=== PATIENT | male | born 1975 | race Two or more races ===

== ENCOUNTER 2024-08-25 05:30 | Inpatient (IN) | payer OTHER ==
[2024-08-19 08:48] VITALS: BP 132/89
[~2024-08-25] VITALS: Ht 165.1 cm; Wt 93.9 kg
[~2024-08-25 05:30] MED LIST: LEVOTHYROXINE25 MC2 PO; LEVOTHYROXINE25 MCG PO; TOPROL XL50 M1; ZESTRIL20 MG PO
[2024-08-25] MEDS ORDERED: CEFAZOLIN SODIUM 1,000 MG VIAL ONE ×2 (12:02→16:09)
[2024-08-25] MEDS ORDERED: BUPIVACAINE HCL/MPF 0.5% 30ML VIAL ONE (12:18)
[2024-08-25] MEDS ORDERED: LIDOCAINE HCL 1%/EPINEPHRINE 20ML VIAL IJ ONE (12:18)
[2024-08-25] MEDS ORDERED: SUGAMMADEX SODIUM 200 MG/2 ML VIAL IV ONE (12:19)
[2024-08-25] MEDS ORDERED: ENOXAPARIN SODIUM 40 MG/0.4 ML SYRINGE SUBCUTANEO SCH (13:53)
[2024-08-25] MEDS ORDERED: MORPHINE SULFATE 4 MG/ML VIAL IV SCH (13:53)
[2024-08-25] MEDS ORDERED: MORPHINE SULFATE 4 MG/ML VIAL IV ONE ×2 (14:45→15:15)
[2024-08-25] MEDS ORDERED: KETOROLAC TROMETHAMINE 30 MG VIAL ONE (15:12)
[2024-08-25] MEDS ORDERED: KETOROLAC TROMETHAMINE 30 MG VIAL IM ONE (15:15)
[2024-08-25] MEDS ORDERED: KETOROLAC TROMETHAMINE 30 MG VIAL IM SCH (17:00)
[2024-08-25 17:40] VITALS: BP 126/77; O2SAT 95
[2024-08-25] MEDS ORDERED: CEFAZOLIN SODIUM 1,000 MG VIAL IV SCH (18:00)
[2024-08-26 01:34] VITALS: BP 139/77; O2SAT 100
== END 2024-08-26 10:37 | disposition home or self-care (01) | DRG 355 ==
LOC: CIR.AMB 05:30 → SURH 16:57
PROVIDERS: ADMIT Surgery; ATTEND Surgery
PROC: 0WUF4JZ Supplement Abdominal Wall with Synthetic Substitute, Percutaneous Endoscopic Approach (ICD-10-PCS; principal; 2024-08-25 07:00)
DX: K43.6 Other and unspecified ventral hernia with obstruction, without gangrene (principal)

== ENCOUNTER 2024-10-08 13:18 | Emergency (ER) | payer OTHER ==
[~2024-10-08] VITALS: Ht 165.1 cm; Wt 93.9 kg
[2024-10-08] MEDS ORDERED: KETOROLAC TROMETHAMINE 60 MG VIAL IM STA (14:20)
[2024-10-08 15:30] LABS: HEMOGLOBIN 16.3 g/dL (13-16.00); MEAN CELL VOLUME 93.3 fL (80.0-100.00); MEAN CORPUSCULAR HEMOGLOBIN 31.7 pg (27.00-32.0); PLATELET COUNT 302 K/uL (150-450); RED BLOOD COUNT 5.15 M/uL (4.00-6.00); RED CELL DISTRIBUTION WIDTH 13.3 % (11.5-14.5)
== END 2024-10-08 16:41 | disposition home or self-care (01) ==
LOC: ER 13:21
PROVIDERS: General Practice
DX: M54.50 Low back pain, unspecified (principal); I10 Essential (primary) hypertension